=== PATIENT | male | born 1995 | race Caucasian/White ===

== ENCOUNTER 2025-03-14 18:20 | Emergency (ER) | payer MEDICAID, SELFPAY ==
[2025-03-14 18:19] VITALS: BP 106/65; PULSE 121; RESP 18; O2SAT 97
--- NOTE | 2025-03-14 18:20 | ECG_ITS ---
[facility] Test Date: 2025-03-14 Pat Name: Alex Casey Department: Room: Gender: Male Home Delivery Driver: : [id number] Requested By: Annette Fontenot Order Number: [id number] Mallory MD: Milagros Barton M.D. Measurements Intervals [place] Rate: 116 P: 55 WA: 104 QRS: 81 QRSD: 94 T: 51 QT: 314 QTc: 437 Interpretive Statements SINUS TACHYCARDIA WITH SHORT WA INTERVAL NONSPECIFIC T-WAVE ABNORMALITY ABNORMAL RHYTHM ECG No previous ECG available for comparison Electronically Signed On 03-14-2025 23:28:15 CDT by Milagros Barton M.D. [id number]
--- NOTE | 2025-03-14 18:21 | XRR_ITS ---
PROCEDURE INFORMATION: Exam: XR Chest Exam date and time: 03/14/2025 6:29 PM Age: 30 years old Clinical indication: Pain; Chest pressure; Additional info: Chest pain TECHNIQUE: Imaging protocol: Radiologic exam of the chest. Views: 1 view. COMPARISON: No relevant prior studies available. FINDINGS: Lungs: No pulmonary consolidation. Pleural spaces: No pleural effusion or pneumothorax. Heart/Mediastinum: Heart size is within normal limits. Bones/joints: Focal hyperdensity in the right lung base is likely artifactual and related to the anterior right 5th costochondral junction and 10th posterior rib. No acute osseous abnormalities are seen. XR/XR chest 1V portable [id number] IMPRESSION: 1. No acute cardiopulmonary disease. 2. Focal hyperdensity in the right lung base is likely artifactual and related to the anterior right 5th costochondral junction and 10th posterior rib. Consider short interval follow-up chest radiograph if indicated.
--- NOTE | 2025-03-14 18:34 | W.ED.CHESTPA ---
HPI - Chest Pain General: Chief Complaint: Chest Pain Stated Complaint: chest pain History of Present Illness: 30-year-old man with a history of pneumonia in the past presents emergency room with right-sided chest pain and a cough. He presents by ambulance. Pain is improving. He said it was a sharp pain and hurt worse with breathing. No known fevers. No altered mental status. Related Data Previous Rx's ?Medication ?Instructions ?Recorded levofloxacin 750 mg tablet 750 mg PO DAILY 7 days #7 tabs 03/14/25 Allergies Allergy/AdvReac Type Severity Reaction Status Date / Time No Known Allergies Allergy Verified 03/14/25 18:27 Review of Systems Narrative: Constitutional symptoms: Negative except as documented in HPI. Skin symptoms: Negative except as documented in HPI. Eye symptoms: Negative except as documented in HPI. ENMT symptoms: Negative except as documented in HPI. Respiratory symptoms: Negative except as documented in HPI. Cardiovascular symptoms: Negative except as documented in HPI. Gastrointestinal symptoms: Negative except as documented in HPI. Genitourinary symptoms: Negative except as documented in HPI. Musculoskeletal symptoms: Negative except as documented in HPI. Neurologic symptoms: Negative except as documented in HPI. Psychiatric symptoms: Negative except as documented in HPI. Endocrine symptoms: Negative except as documented in HPI. Physical Exam Narrative: EXAM NARRATIVE: General: Alert, no acute distress. Skin: Warm, dry. Head: Normocephalic, atraumatic. Neck: Supple, trachea midline. Eye: Extraocular movements are intact. Ears, nose, mouth and throat: mucosa moist. Cardiovascular: Regular, tachycardic, normal peripheral perfusion. Respiratory: Lungs are clear to auscultation, respirations are non-labored, breath sounds are equal, Symmetrical chest wall expansion. Gastrointestinal: Soft, Nontender, Non distended Musculoskeletal: Normal ROM, no deformity. Neurological: Alert and oriented, No focal neurological deficit observed. Psychiatric: Cooperative, appropriate mood & affect. Course Vital Signs: Vital signs: Vital Signs Pulse Rate 121 H 03/14/25 18:19 Respiratory Rate 18 03/14/25 18:19 Blood Pressure 106/65 03/14/25 18:19 Pulse Oximetry 97 03/14/25 18:19 Oxygen Delivery Me thod Room Air 03/14/25 18:19 MDM - Chest Pain Medical Decision Making Differential diagnosis for patient with chest pain includes but is not limited to and based on the above HPI, review of systems and physical exam: Pneumonia. unstable angina. angina. Acute coronary syndrome / OK. Pulmonary embolism. Costochondritis / musculoskeletal. Pleurisy. Pericarditis. Esophageal spasm. Pancreatis. Cholecystitis. Orders placed to evaluate differential diagnosis based on the above differential, HPI and physical exam EKG: Time 1820 sinus tachycardia, No ST-T changes, no ectopy, normal WA & QRS intervals, This was reviewed and interpreted by myself the ER physician at 1825 Chest x-ray: Film was read as no acute process but he is having pain right where what they think is something overlying some going to treat this is a pneumonia as he acts like he has it and he is had it in the past. . No pneumothorax. This was reviewed and interpreted by myself the emergency room physician. I also reviewed the radiology report. Lab Review: Laboratory results were reviewed and interpreted by myself the emergency room physician. Mild leukocytosis. No anemia. No renal failure. Flu COVID and RSV are negative. I reviewed the patient's medical record. Reexamination: Patient remained stable. No increased work of breathing. No altered mental status. No focal motor deficits. Still some slight tachycardia. Fluids and Levaquin given. Assessment and plan: Community-acquired bacterial pneumonia Pleuritic chest pain ? IV Levaquin and IV fluids. - Discharged home - Discussed plan with patient. Answered any questions. - Evaluation and treatment of this problem were appropriate in the emergency setting. Lab Data 03/14/25 19:20 03/14/25 19:20 Radiology Impressions Chest X-Ray 03/14/25 18:21 IMPRESSION: 1. No acute cardiopulmonary disease. 2. Focal hyperdensity in the right lung base is likely artifactual and related to the anterior right 5th costochondral junction and 10th posterior rib. Consider short interval follow-up chest radiograph if indicated. Laboratory Results WBC 13.24 10^3/uL (3.29-11.43) H 03/14/25 19:20 RBC 4.10 10^6/uL (3.85-5.65) 03/14/25 19:20 Hgb 12.20 g/dL (11.27-16.99) 03/14/25 19:20 Hct 36.0 % (37-53) L 03/14/25 19:20 MCV 87.8 fl (82-101) 03/14/25 19:20 MCH 29.8 pg (27-33) 03/14/25 19:20 MCHC 33.9 g/dL (30-55) 03/14/25 19:20 RDW 12.3 % (12.1-15.1) 03/14/25 19:20 Plt Count 181 10^3/cmm (157-399) 03/14/25 19:20 MPV 11.7 fL (7.4-10.4) H 03/14/25 19:20 Neut % (Auto) 83.3 % 03/14/25 19:20 Lymph % (Auto) 7.0 % 03/14/25 19:20 [place] % (Auto) 8.8 % 03/14/25 19:20 Eos % (Auto) 0.3 % 03/14/25 19:20 Baso % (Auto) 0.2 % 03/14/25 19:20 Neut # (Auto) 11.03 10^3/uL (1.8-7.7) H 03/14/25 19:20 Lymph # (Auto) 0.9 10^3/uL (0.8-4.8) 03/14/25 19:20 [place] # (Auto) 1.2 10^3/uL (0.2-0.9) H 03/14/25 19:20 Eos # (Auto) 0.0 10^3/uL (0.0-0.8) 03/14/25 19:20 Baso # (Auto) 0.0 10^3/uL (0.0-0.1) 03/14/25 19:20 Nucleated RBC % (auto) 0 % 03/14/25 19:20 Nucleated RBCs # 0.0 /100WBC 03/14/25 19:20 Sodium 139 mmol/L (136-145) 03/14/25 19:20 Potassium 3.5 mmol/L (3.5-5.1) 03/14/25 19:20 Chloride 99 mmol/L (98-107) 03/14/25 19:20 Carbon Dioxide 26 mmol/L (22-29) 03/14/25 19:20 Anion Gap 17.5 (5-19) 03/14/25 19:20 BUN 17 mg/dL (6-20) 03/14/25 19:20 Creatinine 1.0 mg/dL (0.7-1.2) 03/14/25 19:20 GFR Calculation 87.2 mL/min (90-130) L 03/14/25 19:20 Glucose 101 mg/dL (65-115) 03/14/25 19:20 Calculated Osmolality 290 mOsm/kg (285-295) 03/14/25 19:20 Lactic Acid 0.8 mmol/L (0.5-2.2) 03/14/25 19:20 Calcium 9.5 mg/dL (8.5-10.5) 03/14/25 19:20 Total Bilirubin 0.9 mg/dL (0.15-1.2) 03/14/25 19:20 AST 20 U/L (0-40) 03/14/25 19:20 ALT 13 U/L (0-41) 03/14/25 19:20 Alkaline Phosphatase 84 U/L (40-130) 03/14/25 19:20 C-Reactive Protein 68.1 mg/L (0.0-4.9) H 03/14/25 19:20 Total Protein 7.6 g/dL (6.6-8.7) 03/14/25 19:20 Albumin 4.7 g/dL (3.5-5.2) 03/14/25 19:20 Globulin 2.9 g/dL (1.3-4.6) 03/14/25 19:20 Influenza A (PCR) Negative (Negative) 03/14/25 18:39 Influenza Type B (PCR) Negative (Negative) 03/14/25 18:39 RSV (PCR) Negative (Negative) 03/14/25 18:39 SARS-CoV-2 (PCR) Negative (Negative) 03/14/25 18:39 All radiology interpretation(s) finalized by discharge Discharge Plan Discharge Patient Disposition: Home Clinical Impression: Pneumonia Condition: Stable Prescriptions: New levofloxacin 750 mg tablet 750 mg PO DAILY 7 Days Qty: 7 0RF Discharge Orders: Discharge ED (Routine); Ordered 03/14/25 Ordered By: Annette Garsia Discharge Diet: Usual diet Discharge Activity: Increase activity as tolerated Patient Instructions: Opioid Safety, Pain Management, Patient Portal & Asher Instructions Activity Restrictions/Additional Instructions: [facility] You have been screened and evaluated and felt safe for discharge. Health conditions do change or evolve sometimes and as such it is important that you follow up with your Primary Doctor to be re checked, 3-5 days is a general good time frame for follow up. You are always welcome to return to the ED for re assessment if your symptoms are worsening or you have new concerns Print Language: Danish Coding Level of Care Code ED Printer Helper for Chg Fwd Heart Score HEART Score Components History: Slightly Suspicous EKG: Normal Age: Less than 45 yrs Risk Factors: No Risk Factors Known Troponin: Baseline Trop <16 ng/L HEART Score RESULT HEART Score: 0
[2025-03-14] MEDS: levofloxacin-dextrose 5 % 750 MG/150 ML PREMIX 100 MG IV (19:35)
[2025-03-14 19:59] LABS: Hematocrit 36.0 % (37-53); Hemoglobin 12.20 g/dL (11.27-16.99); Mean Corpuscular HGB Conc 33.9 g/dL (30-55); Mean Corpuscular Hemoglobin 29.8 pg (27-33); Mean Corpuscular Volume 87.8 fl (82-101); Nucleated Red Blood Cells % 0 %; Platelet Count 181 10^3/cmm (157-399); Red Blood Count 4.10 10^6/uL (3.85-5.65); White Blood Count 13.24 10^3/uL (3.29-11.43)
[2025-03-14 20:17] LABS: Respiratory Syncytial Virus Ce NEGATIVE (Negative); SARS-CoV-2 PCR NEGATIVE (Negative)
[2025-03-14 20:21] LABS: Alanine Aminotransferase 13 U/L (0-41); Albumin Level 4.7 g/dL (3.5-5.2); Alkaline Phosphatase 84 U/L (40-130); Anion Gap 17.5 (5-19); Aspartate Amino Transferase 20 U/L (0-40); Blood Urea Nitrogen 17 mg/dL (6-20); Calcium 9.5 mg/dL (8.5-10.5); Carbon Dioxide 26 mmol/L (22-29); Chloride 99 mmol/L (98-107); Globulin 2.9 g/dL (1.3-4.6); Glucose 101 mg/dL (65-115); Osmolality Calculated 290 mOsm/kg (285-295); Potassium 3.5 mmol/L (3.5-5.1); Sodium 139 mmol/L (136-145); Total Protein 7.6 g/dL (6.6-8.7)
[2025-03-14 20:23] LABS: Lactic Sepsis W/Reflex 0.8 mmol/L (0.5-2.2)
[2025-03-14 20:30] VITALS: BP 129/65; PULSE 112; RESP 16; O2SAT 99
== END 2025-03-14 21:07 | disposition home or self-care (01) ==
PROVIDERS: Emergency Provider Emergency Medicine
DX: J18.9 Pneumonia, unspecified organism (principal); Z11.52 Encounter for screening for COVID-19
CPT/HCPCS: 36415; 71045; 80053; 83605; 85025; 86140; 87040; 87637; 93005; 96361; 96365; 99285; J1956; J7030